=== PATIENT | female | born 1985 | race Caucasian/White ===

== ENCOUNTER 2020-03-25 07:08 | Outpatient (CLI) | payer OTHER ==
--- NOTE | 2020-03-25 10:05 | CT ---
CT ABDOMEN AND PELVIS WITH ORAL AND IV CONTRAST: Date: 03/25/2020 HISTORY: Abdominal pain. COMPARISON: 05/26/2012 and 06/30/2012. FINDINGS: The lung bases are clear. The liver, spleen, pancreas, adrenal glands, and kidneys are normal. No jeannine e air, free fluid, or lymphadenopathy seen in the abdomen or pelvis. There are vascular calcifications without evidence of aneurysmal dilatation of the abdominal aorta. N o osteolytic or osteoblastic lesions are seen. Uterus and ovaries are present. A normal appearing corin endix is noted. IMPRESSION: No significant abnormalities are identified. POS: [facility]
== END 2020-03-25 07:09 | disposition home or self-care (01) ==
LOC: SCSCT 07:08
PROVIDERS: ATTEND Family Medicine
DX: R10.32 Left lower quadrant pain (principal)
CPT/HCPCS: 74177